=== PATIENT | male | born 1990 | race American Indian/Alaskan Native ===

== ENCOUNTER 2020-06-11 00:49 | Emergency (ER) | payer OTHER ==
--- NOTE | 2020-06-11 03:53 | Emergency Department Report ---
ED ENT HPI - General Chief complaint: Dental/Oral Stated complaint: TOOTH PAIN/HOT FLASHES Time Seen by Provider: 06/11/20 03:36 Source: patient Mode of arrival: Ambulatory Limitations: No Limitations - History of Present Illness Initial comments: Patient is a 29-year-old male who presents emergency room with complaints of dental pain. He states that the pain started 3 days ago. Patient states that the pain is in the left upper posterior region. Patient denies fever and chills. Patient states the pain is also causing him to have sore throat. Francisco cabello denies nausea vomiting. Patient denies dizziness. patient denies headache. Patient denies recent travel. Patient denies recent international travel. Patient denies exposure to the novel coronavirus. Patient denies sick contacts. Patient denies fever and chills. Patient denies cough. Patient denies diarrhea. Patient denies coming in contact with anybody with symptoms of the novel coronavirus. MD complaint: tooth pain -: Sudden Location: tooth # Severity: severe Severity scale (0 -10): 8 Quality: stabbing Consistency: constant Improves with: rest Worsens with: eating Context- Dental: history of dental caries, poor dental care Associated Symptoms: toothache, sore throat. denies: fever, cough, gum swe lling, pain with swallowing, tinnitus, hearing loss, discharge from ear, rhinorrhea - Related Data Previous Rx's Medication Instructions Recorded Last Taken Type Amoxicillin [Amoxicillin TAB] 875 mg PO BID 10 Days #20 tablet 06/11/20 Unknown Rx Allergies Allergy/AdvReac Type Severity Reaction Status Date / Time No Known Allergies Allergy Unverified 06/11/20 02:06 ED Dental HPI - General Chief complaint: Dental/Oral Stated complaint: TOOTH PAIN/HOT FLASHES Time Seen by Provider: 06/11/20 03:49 Source: patient Mode of arrival: Ambulatory Limitations: No Limitations - Related Data Previous Rx's Medication Instructions Recorded Last Taken Type Amoxicillin [Amoxicillin TAB] 875 mg PO BID 10 Days #20 tablet 06/11/20 Unknown Rx Allergies Allergy/AdvReac Type Severity Reaction Status Date / Time No Known Allergies Allergy Unverified 06/11/20 02:06 ED Review of Systems ROS: Stated complaint: TOOTH PAIN/HOT FLASHES Other details as noted in HPI Constitutional: denies: chills, fever Eyes: denies: eye pain, eye discharge, vision change ENT: as per HPI, throat pain, dental pain. denies: ear pain Respiratory: denies: cough, shortness of breath, wheezing Cardiovascular: denies: chest pain, palpitations Endocrine: no symptoms reported Gastrointestinal: denies: abdominal pain, nausea, diarrhea Genitourinary: denies: urgency, dysuria Musculoskeletal: denies: back pain, joint swelling, arthralgia Skin: denies: rash, lesions Neurological: denies: headache, weakness, paresthesias Psychiatric: denies: anxiety, depression Hematological/Lymphatic: denies: easy bleeding, easy bruising ED Past Medical Hx - Past Medical History Previous Medical History?: No - Surgical History Past Surgical History?: No - Family History Family history: no significant - Social History Smoking Status: Never Smoker Substance Use Type: None - Medications Home Medications: Home Medications Medication Instructions Recorded Confirmed Last Taken Type Amoxicillin [Amoxicillin TAB] 875 mg PO BID 10 Days #20 tablet 06/11/20 Unknown Rx ED Physical Exam - General Limitations: No Limitations General appearance: alert, in no apparent distress - Head Head exam: Present: atraumatic, normocephalic - Eye Eye exam: Present: normal appearance - ENT ENT exam: Present: mucous membranes moist, other (Gingival swelling noted to the left posterior upper.) - Neck Neck exam: Present: normal inspection - Respiratory Respiratory exam: Present: normal lung sounds bilaterally. Absent: respiratory distress - Cardiovascular Cardiovascular Exam: Present: regular rate, normal rhythm. Absent: systolic murmur, diastolic murmur, rubs, gallop - GI/Abdominal GI/Abdominal exam: Present: soft, normal bowel sounds - Rectal Rectal exam: Present: deferred - Extremities Exam Extremities exam: Present: normal inspection - Back Exam Back exam: Present: normal inspection - Neurological Exam Neurological exam: Present: alert, oriented X3 - Psychiatric Psychiatric exam: Present: normal affect, normal mood - Skin Skin exam: Present: warm, dry, intact, normal color. Absent: rash ED Course - Reevaluation(s) Reevaluation #1: I discussed all results and clinical findings with patient. I discussed plan of care with patient. Patient agrees with plan of care. Patient is stable for discharge. Patient will be discharged home. Patient given discharge instructions. Patient voiced understanding of discharge instructions. 06/11/20 03:51 ED Medical Decision Making - Medical Decision Making Patient is a 29-year-old male that presents emergency room with complaints of left upper dental pain. Patient states he has not seen a dentist in many years. Patient denies fever and chills. Patient had exam done and showed to have gingivitis of the posterior upper gums. Patient will find consistent with a dental infection. Patient was given oral antibiotics. Patient stable for discharge. Patient not require any further emergency medical services. Patient given discharge instructions. - Differential Diagnosis Toothache, dental infection, gingivitis Critical care attestation.: If time is entered above; I have spent that time in minutes in the direct care of this critically ill patient, excluding procedure time. ED Disposition Clinical Impression: Dental infection Disposition: - TO HOME OR SELFCARE Is pt being admited?: No Does the pt Need Aspirin: No Condition: Stable Instructions: Preventive Dental Care, Adult Additional Instructions: Patient to follow-up with primary care in 2 to 3 days. Patient to follow-up with dentist as soon as possible.. Patient to rest. Patient to increase water. Patient to take Tylenol or ibuprofen as needed for pain. Patient to take meds as directed. Patient to return to the ER if condition worsens, changes or new symptoms arise. Prescriptions: Amoxicillin [Amoxicillin TAB] 875 mg PO BID 10 Days #20 tablet Referrals: PRIMARY CARE, [Primary Care Provider] - 2-3 Days Time of Disposition: 03:55
[2020-06-11 04:13] VITALS: BP 144/84
== END 2020-06-11 04:15 | disposition home or self-care (01) ==
LOC: ED 00:49
DX: K04.7 Periapical abscess without sinus (principal); Z79.2 Long term (current) use of antibiotics
CPT/HCPCS: 99282

== ENCOUNTER 2021-09-30 12:02 | Emergency (ER) | payer SELFPAY ==
[2021-09-30 13:42] LABS: Basophils % (Auto) 0.4 % (0.0-1.8); Eosinophils % (Auto) 0.8 % (0.0-4.3); Hemoglobin 13.7 gm/dl (11.8-15.2); Lymphocytes # (Auto) 1.8 K/mm3 (1.2-5.4); Lymphocytes % (Auto) 39.7 % (13.4-35.0); Mean Corpuscular HGB Conc 33 % (32-34); Mean Corpuscular Volume 78 fl (84-94); Monocytes # (Auto) 0.4 K/mm3 (0.0-0.8); Monocytes % (Auto) 9.3 % (0.0-7.3); Platelet Count 280 K/mm3 (140-440); Red Blood Count 5.39 M/mm3 (3.65-5.03); Red Cell Distribution Width 15.7 % (13.2-15.2)
[2021-09-30 14:05] LABS: Alanine Aminotransferase 19 units/L (7-56); Albumin 4.3 g/dL (3.9-5); BUN/Creatinine Ratio 11; Blood Urea Nitrogen 15 mg/dL (9-20); Calcium 9.3 mg/dL (8.4-10.2); Hemolysis Index 1
--- NOTE | 2021-09-30 18:04 | Cat Scan Report ---
CT ABDOMEN AND PELVIS WITHOUT CONTRAST HISTORY: abdominal pain. COMPARISON: None. TECHNIQUE: CT images of the abdomen and pelvis were obtained without administration of intravenous co ntrast. All CT scans at this location are performed using CT dose reduction for ALARA by means of tomated exposure control. FINDINGS: Lungs/bones: There is mild pleural thickening and probable scarring in the left lower lobe here ther e is also a rounded masslike structure measuring 3 cm in the left lower lobe on image 39 of series 2. Lungs are otherwise clear. No acute osseous normality identified. Abdomen/pelvis: The liver, gallbladder, spleen, pancreas, adrenals, kidneys, and proximal GI tract a ppear unremarkable. Several Shoddy peritoneal lymph nodes are present which could be reactive. Prostate and urinary bladder are normal. No pelvic free fluid or acute colonic abnormality identified . The terminal ileum is normal. The appendix is not well-seen on this exam but there is no pericecal inflammation. IMPRESSION: 1. No acute abnormality identified. 2. Incidental left lung finding worrisome for an underlying mass. Rounded atelectasis/scarring is als o in the differential. Correlation with any prior outside imaging or follow-up PET scan would be usef ul to differentiate these possibilities. Signer Name: Marek Barbosa MD Signed: 09/30/2021 6:00 PM Workstation Name: [employer]
[2021-09-30] MEDS ORDERED: DICYCLOMINE 10 MG/5 ML ORAL LIQD PO ONE (18:28)
[2021-09-30] MEDS ORDERED: KETOROLAC 10 MG TAB PO ONE (18:28)
[2021-09-30] MEDS ORDERED: ALUM-MAG HYDROXIDE-SIMETHICONE 200-200-20MG/5ML ORAL LIQD 30 ML PO ONE (18:28)
[2021-09-30] MEDS ORDERED: LIDOCAINE VISCOUS 2% 15 ML ORAL LIQD PO ONE (18:28)
--- NOTE | 2021-09-30 18:30 | Emergency Department Report ---
ED Abdominal Pain HPI - General Chief Complaint: Abdominal Pain Stated Complaint: STOMACH PAIN/DIARRHEA Time Seen by Provider: 09/30/21 16:55 Source: patient Mode of arrival: Ambulatory Limitations: No Limitations - History of Present Illness Initial Comments: 31-year-old black male with no past medical history presents to the emergency department for evaluation of 1 week history of epigastric pain. He states that pain has been intermittent and is a burning type pain that is worse with eating. Patient states that he also has diarrhea. He denies fever, nausea, vomiting, and penile discharge. He states that pain is worse is 9 out of 10. He states that he was seen by his primary care provider and also a briar wood sorter. He says that several weeks ago he had an upper endoscopy that was within normal limits. He states that he was taking Protonix for the pain, had no improvement, so was taken off by his briar wood sorter. MD Complaint: abdominal pain -: month(s) (1) Location: epigastric Radiation: none Migration to: no migration Severity: severe Severity scale (0 -10): 10 Quality: burning Consistency: intermittent Worsens With: eating Associated Symptoms: diarrhea. denies: nausea, vomiting, fever, chills, dysuria, hematemesis, hematochezia, melena, hematuria, anorexia, syncope - Related Data Previous Rx's Medication Instructions Recorded Last Taken Type Amoxicillin [Amoxicillin TAB] 875 mg PO BID 10 Days #20 tablet 06/11/20 Unknown Rx Allergies Allergy/AdvReac Type Severity Reaction Status Date / Time No Known Allergies Allergy Unverified 06/11/20 02:06 ED Review of Systems ROS: Stated complaint: STOMACH PAIN/DIARRHEA Other details as noted in HPI Comment: All other systems reviewed and negative Constitutional: denies: chills, fever, malaise, weakness Respiratory: denies: shortness of breath Cardiovascular: denies: chest pain, palpitations Gastrointestinal: abdominal pain, diarrhea. denies: nausea, vomiting, hematemesis, melena, hematochezia Genitourinary: denies: urgency, dysuria Musculoskeletal: denies: back pain Neurological: denies: headache, weakness ED Past Medical Hx - Past Medical History Previous Medical History?: No - Surgical History Past Surgical History?: No - Social History Smoking Status: Never Smoker Substance Use Type: None - Medications Home Medications: Home Medications Medication Instructions Recorded Confirmed Last Taken Type Amoxicillin [Amoxicillin TAB] 875 mg PO BID 10 Days #20 tablet 06/11/20 Unknown Rx ED Physical Exam - General Limitations: No Limitations General appearance: alert, in no apparent distress - Head Head exam: Present: atraumatic, normocephalic - Eye Eye exam: Present: normal appearance. Absent: conjunctival injection - Neck Neck exam: Present: normal inspection, full ROM. Absent: tenderness, lymphadenopathy - Respiratory Respiratory exam: Present: normal lung sounds bilaterally. Absent: respiratory distress, wheezes, rales, rhonchi, stridor, chest wall tenderness - Cardiovascular Cardiovascular Exam: Present: regular rate, normal heart sounds - GI/Abdominal GI/Abdominal exam: Present: soft, tenderness (Epigastric area), normal bowel sounds. Absent: distended, guarding, rebound, rigid - Extremities Exam Extremities exam: Present: normal inspection, full ROM, normal capillary refill. Absent: tenderness, pedal edema, joint swelling, calf tenderness - Back Exam Back exam: Present: normal inspection. Absent: CVA tenderness (R), CVA tenderness (L), vertebral tenderness - Neurological Exam Neurological exam: Present: alert, oriented X3 - Psychiatric Psychiatric exam: Present: normal affect, normal mood - Skin Skin exam: Present: warm, dry, intact, normal color ED Course Vital Signs 09/30/21 12:24 Temperature 98.5 F Pulse Rate 73 Respiratory 18 Rate Blood Pressure 120/70 [Left] O2 Sat by Pulse 99 Oximetry ED Medical Decision Making - Lab Data Result diagrams: 09/30/21 12:48 09/30/21 12:48 - Radiology Data Radiology results: report reviewed, image reviewed CT abdomen pelvis without contrast: FINDINGS: Lungs/bones: There is mild pleural thickening and probable scarring in the l eft lower lobe here there is also a rounded masslike structure measuring 3 cm in the left lower lobe on image 39 of series 2. Lungs are otherwise clear. No acute osseous normality identified. Abdomen/pelvis: The liver, gallbladder, spleen, pancreas, adrenals, kidneys, and proximal GI tract appear unremarkable. Several Shoddy peritoneal lymph nodes are present which could be reactive. Prostate and urinary bladder are normal. No pelvic free fluid or acute colonic abnormality identified. The terminal ileum is normal. The appendix is not well-seen on this exam but there is no pericecal inflammation. IMPRESSION: 1. No acute abnormality identified. 2. Incidental left lung finding worrisome for an underlying mass. Rounded atelectasis/scarring is also in the differential. Correlation with any prior outside imaging or follow- up PET scan would be useful to differentiate these possibilities. - Medical Decision Making 31-year-old black male with no past medical history presents to the emergency department for evaluation of 1 week history of epigastric pain. He states that pain has been intermittent and is a burning type pain that is worse with eating. Patient states that he also has diarrhea. He denies fever, nausea, vomiting, and penile discharge. He states that pain is worse is 9 out of 10. He states that he was seen by his primary care provider and also a briar wood sorter. He says that several weeks ago he had an upper endoscopy that was within normal limits. He states that he was taking Protonix for the pain, had no improvement, so was taken off by his briar wood sorter. Physical exam unremarkable. Labs without any gross abnormalities noted. CT scan without any acute abnormalities but with incidental finding of mass to the left lower lobe of lung. Patient is advised to follow-up with pulmonary for further evaluation and management of lung mass, and follow-up with his primary care provider or GI for further management of abdominal pain. He is advised to return to the emergency department as needed. He verbalizes understanding of and agreement with plan of care Critical care attestation.: If time is entered above; I have spent that time in minutes in the direct care of this critically ill patient, excluding procedure time. ED Disposition Clinical Impression: Mass of left lung Abdominal pain Qualifiers: Abdominal location: epigastric Qualified Code(s): R10.13 - Epigastric pain Disposition: 01 HOME / SELF CARE / HOMELESS Is pt being admited?: No Does the pt Need Aspirin: No Condition: Stable Instructions: Abdominal Pain, Adult, [id number] Additional Instructions: Follow-up with primary care provider or lung doctor for further evaluation and management. Return to the emergency department as needed. Referrals: BARRIE PULIDO MD [Staff Physician] - 3-5 Days SHERYL APARICIO MD [Staff Physician] - 3-5 Days Time of Disposition: 18:29
[2021-09-30 20:22] LABS: Bilirubin,Urine Negative (Negative); Color,Urine Colorless (Yellow)
[2021-09-30 20:23] LABS: Blood,Urine Negative (Negative); Protein,Urine <15 mg/dL mg/dL (Negative); Urobilinogen,Urine 0.2 mg/dL (<2.0)
[2021-09-30 20:33] VITALS: BP 126/74
== END 2021-09-30 20:34 | disposition home or self-care (01) ==
LOC: ED 12:02
DX: R91.8 Other nonspecific abnormal finding of lung field (principal); R10.9 Unspecified abdominal pain
CPT/HCPCS: 36415; 74176; 80053; 81001; 85025; 99284